=== PATIENT | female | born 2000 | race Two or more races ===

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

== ENCOUNTER 2018-03-20 15:58 | Emergency (ER) | payer MEDICAID, OTHER ==
[2018-03-20] MEDS ORDERED: NS 1,000 ML IV ONE ×2 (16:16)
[2018-03-20] MEDS ORDERED: KETOROLAC 30 MG/1 ML SDV IVP ONE (16:16)
[2018-03-20] MEDS ORDERED: ONDANSETRON 4 MG/2 ML VIAL IVP ONE (16:16)
--- NOTE | 2018-03-20 16:16 | EDPHY ---
H & P Stated Complaint: UTI Time Seen by Provider: 03/20/18 16:09 HPI/ROS: HPI: This is a 17-year-old female who presents with Chief Complaint: Urinary tract infection Location: Quality: Burning with urination Duration: 24 hr Signs and Symptoms: no fever,+ nausea, no vomiting, no hematemesis, no blood in stool, no abdominal bloating, no diarrhea, no back pain, + burning with urination, + urinary hesitancy, no vaginal bleeding/discharge, no indigestion, no chest pain, no shortness of breath, + sore throat Timing: Rapid onset, constant Severity: Moderate to severe Context: Patient is a college student down in [facility] presents from the urgent care with complaints of burning with urination and urinary hesitancy for the last 24 hr. She reports that her last menstrual period was approximately 1- 2 weeks ago. Denies any vaginal bleeding/discharge. No concern for STIs. Patient reports that she is eating okay but does have a sore throat. History of tonsillectomy. Denies any fever, vomiting, back pain, chills, fatigue. LMP 1-2 weeks ago. She admits to hardly drink any fluids today. Modifying Factors: None Comment: ROS: A comprehensive 10 system review of systems is otherwise negative aside from elements mentioned in the history of present illness. MEDICAL/SURGICAL/SOCIAL HISTORY: Medical history: Generally healthy. Does not take any regular medications. Surgical history: Tonsillectomy Social history: Never smoked. Family history noncontributory. CONSTITUTIONAL: Teenage female, nontoxic appearing, awake and alert, no obvious distress HEENT: Atraumatic and normocephalic, PERRL, EOMI. Nares patent; no rhinorrhea; no nasal mucosal edema. Tympanic membranes clear. Oropharynx clear, no exudate and moist pink mucosa. Airway patent. No lymphadenopathy. No meningismus. Cardiovascular: Normal S1/S2, tachycardia, regular rhythm, without murmur rub or gallop. PULMONARY/CHEST: Symmetrical and nontender. Clear to auscultation bilaterally. Good air movement. No accessory muscle usage. ABDOMEN: Soft, nondistended, nontender, no rebound, no guarding, no peritoneal signs, no masses or organomegaly. No CVAT. EXTREMITIES: 2/2 pulses, strength 5/5, no deformities, no clubbing, no cyanosis or edema. NEUROLOGICAL: no focal neuro deficits. GCS 15. SKIN: Warm and dry, no erythema. no rash. Good capillary refill. Source: Patient Exam Limitations: No limitations - Personal History LMP (Females 10-55): 15-21 Days Ago Current Tetanus/Diphtheria Vaccine: Yes - Medical/Surgical History Hx Asthma: No Hx Chronic Respiratory Disease: No Hx Diabetes: No Hx Cardiac Disease: No Hx Renal Disease: No Hx Cirrhosis: No Hx Alcoholism: No Hx HIV/AIDS: No Hx Splenectomy or Spleen Trauma: No Other PMH: tonsillectomy. - Social History Smoking Status: Never smoked Constitutional: Initial Vital Signs Temperature (C) 37.9 C 03/20/18 16:02 Heart Rate 123 H 03/20/18 16:02 Respiratory Rate 22 H 03/20/18 16:02 Blood Pressure 129/74 H 03/20/18 16:02 O2 Sat (%) 95 03/20/18 16:02 O2 Delivery Mode Room Air Allergies/Adverse Reactions: amoxicillin trihydrate [From Augmentin] Allergy (Verified 03/20/18 16:04) potassium clavulanate [From Augmentin] Allergy (Verified 03/20/18 16:04) Home Medications: Medication Instructions Recorded Ondansetron Odt [Zofran Odt 4 mg 4 mg PO Q4 PRN #12 tab 03/20/18 (*)] Sulfamethox/Tmp 800/160 mg 1 tab PO BID #14 tab 03/20/18 [Bactrim Ds] Medical Decision Making ED Course/Re-evaluation: Vital signs reviewed and stable upon arrival. Laboratory studies and IV access obtained. Urinalysis and strep test ordered. Given 2 L normal saline and IV Toradol 30 mg No systemic signs to suggest pyelonephritis. 1640: Labs reviewed. WBC 14 K with left shift, no signs of electrolyte imbalance, acute kidney injury, , anemia. Rapid strep is negative. Modified Centor score is low risk for prophylactic treatment for strep pharyngitis. Urinalysis shows infection with hematuria; sent for urine culture Patient has an allergy to amoxicillin and she also believes to cephalosporins; will give Bactrim; 1st dose in the ED as well as prescription for 7 days 1715: Reassessed patient who reports drinking fluids without any difficulty. Feels 50% better. Asking to be discharged home. Politely declined to school note. Vital signs stable at discharge. Tachycardia resolved. This patient was seen under the supervision of my secondary supervising physician. I evaluated care for this patient independently. Discussed this patient with Dr. Cortez. Differential Diagnosis: Differential diagnosis includes but is not limited to strep pharyngitis, urinary tract infection, pyelonephritis, ureterolithiasis, sepsis. - Data Points Laboratory Results: Laboratory Results 03/20/18 16:25 03/20/18 16:25 03/20/18 03/20/18 03/20/18 Unknown 17:15 16:25 WBC RBC Hgb Hct MCV MCH MCHC RDW Plt Count MPV Neut % (Auto) Lymph % (Auto) Coal % (Auto) Eos % (Auto) Baso % (Auto) Nucleat RBC Rel Count Absolute Neuts (auto) Absolute Lymphs (auto) Absolute Monos (auto) Absolute Eos (auto) Absolute Basos (auto) Absolute Nucleated RBC Immature Gran % Immature Gran # Sodium Potassium Chloride Carbon Dioxide Anion Gap BUN Creatinine Estimated GFR Glucose Calcium Beta HCG, Qual NEGATIVE Urine Color YELLOW Urine Appearance HAZY Urine pH 7.0 (5.0-7.5) Ur Specific [place] 1.019 (1.002-1.030) Urine Protein 1+ H (NEGATIVE) Urine Ketones TRACE H (NEGATIVE) Urine Blood 3+ H (NEGATIVE) Urine Nitrate NEGATIVE (NEGATIVE) Urine Bilirubin NEGATIVE (NEGATIVE) Urine Urobilinogen 4.0 EU H EU (0.2-1.0) Ur Leukocyte Esterase 1+ H (NEGATIVE) Urine RBC 50-182 /hpf H /hpf (0-3) Urine WBC 50-182 /hpf H /hpf (0-3) Ur Epithelial Cells 1+ /lpf /lpf (NONE-1+) Urine Mucus TRACE /lpf /lpf (NONE-1+) Urine Glucose NEGATIVE (NEGATIVE) Group A Strep Screen Group A Strep DNA Pending 03/20/18 03/20/18 03/20/18 16:25 16:25 16:15 WBC 14.26 10^3/uL H 10^3/uL (3.80-9.50) RBC 4.98 10^6/uL 10^6/uL (4.18-5.33) Hgb 14.7 g/dL g/dL (12.6-16.3) Hct 42.0 % % (38.0-47.0) MCV 84.3 fL fL (81.5-99.8) MCH 29.5 pg pg (27.9-34.1) MCHC 35.0 g/dL g/dL (32.4-36.7) RDW 11.9 % % (11.5-15.2) Plt Count 215 10^3/uL 10^3/uL (150-400) MPV 11.0 fL fL (8.7-11.7) Neut % (Auto) 83.6 % H % (39.3-74.2) Lymph % (Auto) 10.1 % L % (15.0-45.0) Coal % (Auto) 5.8 % % (4.5-13.0) Eos % (Auto) 0.0 % L % (0.6-7.6) Baso % (Auto) 0.1 % L % (0.3-1.7) Nucleat RBC Rel Count 0.0 % % (0.0-0.2) Absolute Neuts (auto) 11.92 10^3/uL H 10^3/uL (1.70-6.50) Absolute Lymphs (auto) 1.44 10^3/uL 10^3/uL (1.00-3.00) Absolute Monos (auto) 0.83 10^3/uL H 10^3/uL (0.30-0.80) Absolute Eos (auto) 0.00 10^3/uL L 10^3/uL (0.03-0.40) Absolute Basos (auto) 0.02 10^3/uL 10^3/uL (0.02-0.10) Absolute Nucleated RBC 0.00 10^3/uL 10^3/uL (0-0.01) Immature Gran % 0.4 % % (0.0-1.1) Immature Gran # 0.05 10^3/uL 10^3/uL (0.00-0.10) Sodium 136 mEq/L mEq/L (135-145) Potassium 3.8 mEq/L mEq/L (3.3-5.0) Chloride 99 mEq/L mEq/L (97-110) Carbon Dioxide 23 mEq/l mEq/l (22-31) Anion Gap 14 mEq/L mEq/L (6-14) BUN 11 mg/dL mg/dL (7-23) Creatinine 0.7 mg/dL mg/dL (0.6-1.0) Estimated GFR > 60 Glucose 118 mg/dL H mg/dL (70-100) Calcium 10.0 mg/dL mg/dL (8.5-10.4) Beta HCG, Qual Urine Color Urine Appearance Urine pH Ur Specific [place] Urine Protein Urine Ketones Urine Blood Urine Nitrate Urine Bilirubin Urine Urobilinogen Ur Leukocyte Esterase Urine RBC Urine WBC Ur Epithelial Cells Urine Mucus Urine Glucose Group A Strep Screen NEGATIVE (NEGATIVE) Group A Strep DNA Medications Given: Discontinued Medications Sodium Chloride (Ns) 1,000 mls @ 0 mls/hr IV ONCE ONE; Wide Open PRN Reason: Protocol Stop: 03/20/18 16:17 Last Admin: 03/20/18 16:30 Dose: 1,000 mls Sodium Chloride (Ns) 1,000 mls @ 0 mls/hr IV ONCE ONE; Wide Open PRN Reason: Protocol Stop: 03/20/18 16:17 Last Admin: 03/20/18 17:24 Dose: Not Given Ketorolac Tromethamine (Toradol) 30 mg IVP EDNOW ONE Stop: 03/20/18 16:17 Last Admin: 03/20/18 16:34 Dose: 30 mg Ondansetron HCl (Zofran) 4 mg IVP EDNOW ONE Stop: 03/20/18 16:17 Last Admin: 03/20/18 16:34 Dose: 4 mg Trimethoprim/Sulfamethoxazole (Bactrim Ds) 1 ea PO EDNOW ONE PRN Reason: Protocol Stop: 03/20/18 17:03 Last Admin: 03/20/18 17:22 Dose: 1 ea Departure - Departure Disposition: Home, Routine, Self-Care Clinical Impression: Acute cystitis Qualifiers: Hematuria presence: with hematuria Qualified Code(s): N30.01 - Acute cystitis with hematuria Condition: Good Instructions: Urinary Tract Infection in Women (ED) Additional Instructions: Consume a minimum of 8-10 glasses of water or electrolyte fluid replacement drinks that include Gatorade, Powerade, Pedialyte. Take antibiotic as directed. Do not skip a dose. Take all of the antibiotic until complete. Take Zofran 1 tab every 4 hours as needed for nausea, vomiting. Please refrain from sexual intercourse until all symptoms have resolved. Return to the Emergency Room if symptoms do not resolve in the next 72 hours, you spike a fever > 102 F, or experience intractable abdominal pain/nausea/ vomiting. Referrals: [facility],. [Clinic] - 5-7 days, if not improved Prescriptions: Ondansetron Odt [Zofran Odt 4 mg (*)] 4 mg PO Q4 PRN #12 tab PRN Reason: Nausea/Vomiting, Use 1st Sulfamethox/Tmp 800/160 mg [Bactrim Ds] 1 tab PO BID #14 tab
[2018-03-20 16:38] LABS: PLATELET COUNT 215 10^3/uL (150-400)
[2018-03-20] MEDS ORDERED: SULFAMETHOX/TMP 800/160 MG 1 TAB PO ONE (17:02)
[2018-03-20 17:21] VITALS: BP 120/76
== END 2018-03-20 17:48 | disposition home or self-care (01) ==
DX: N30.01 Acute cystitis with hematuria (principal); E86.9 Volume depletion, unspecified
CPT/HCPCS: 96374; J1885; J2405